=== PATIENT | female | born 1975 | race Hispanic/Latino ===

== ENCOUNTER 2016-10-19 07:18 | Day surgery (SDC) | payer OTHER ==
[2016-10-17 12:13] VITALS: RESP 18
[2016-10-17 12:14] VITALS: BMI 33.0
[2016-10-19] MEDS ORDERED: Lactated Ringer's 1,000 ML IV ONE (07:43)
[2016-10-19] MEDS ORDERED: ePHEDrine 50 mg/ml Inj ONE (08:06)
[2016-10-19] MEDS ORDERED: Propofol 10 mg/ml Inj (20 ML) ONE (08:06)
[2016-10-19] MEDS ORDERED: Midazolam 2 MG/2 ML VIAL ONE (08:06)
[2016-10-19] MEDS ORDERED: Rocuronium 10 mg/ml (5 ml) ONE (08:06)
[2016-10-19] MEDS ORDERED: Succinylcholine 200 mg/10 ml Inj IV ONE (08:06)
[2016-10-19] MEDS ORDERED: Dexamethasone 4 mg/1 ml IVP PRN (10:24)
[2016-10-19] MEDS ORDERED: Oxycodone/Acetaminophen 5/325 mg Tab PO PRN (10:32)
[2016-10-19 13:19] VITALS: O2SAT 96
[2016-10-19] MEDS ORDERED: Oxycodone/Acetaminophen 5/325 mg Tab PO ONE (13:21)
--- NOTE | 2016-10-19 13:22 | OP ---
PROCEDURE DATE: 10/19/2016 PREOPERATIVE DIAGNOSIS: Irregular bleeding. POSTOPERATIVE DIAGNOSIS: Irregular bleeding. PATHOLOGY: Pending. SURGEON: Juan David Martínez MD ANESTHESIA: , general anesthesia. PROCEDURE: Hysteroscopy, MyoSure and D and C. FINDINGS: Moderate amount of polypoid tissue. ESTIMATED BLOOD LOSS: About 50-75 mL. DESCRIPTION OF PROCEDURE: With the patient in the dorsal lithotomy position under general anesthesia , the patient was prepped and draped in the usual sterile manner. The straight catheter was used to empty the bladder after which a weighted speculum was placed in the posterior vagina. Cervix was gra sped anteriorly with single tooth tenaculum. 10 cm dilated and procedure was done. The cervix was dilated. Hysteroscope was then introduced into the cervical canal and visualized several small m oderate amounts of polyps. After this was done, the MyoSure was then introduced and the procedure wa s done where the polyps were removed sequentially and there was no bleeding after that. After that w as done, hysteroscopy removed and D and C was done, obtaining additional amount of tissue. Hemostasi s was maintained. Instruments were removed from the cervical canal and the endometrial canal. The p atient tolerated procedure well. The specimen was sent for pathology. The patient tolerated procedu re well and was in satisfactory condition on the way to recovery room. Juan David Martínez MD cc: 22 TT: 10/19/2016 13:21:35 sudha
[2016-10-19 13:59] VITALS: BP 113/77; PULSE 79; TEMP 97.7
== END 2016-10-19 14:21 | disposition home or self-care (01) ==
LOC: H.OPSURG 07:18
PROVIDERS: ATTEND Specialist
DX: N92.6 Irregular menstruation, unspecified (principal); J45.909 Unspecified asthma, uncomplicated